=== PATIENT | male | born 1965 | race Caucasian/White ===

== ENCOUNTER 2016-07-15 11:08 | Emergency (ER) | payer BC ==
[~2016-07-15] VITALS: Ht 154.9 cm; Wt 71.0 kg
[2016-07-15 11:15] VITALS: BP 117/58; PULSE 68; RESP 18; TEMP 97.8; O2SAT 100
[2016-07-15] MEDS ORDERED: SODIUM CHLOR 0.9% 1000 ML INJ 1,000 ML IV ONE (11:24)
[2016-07-15 11:29] VITALS: RESP 17; O2SAT 100
[2016-07-15 11:30] VITALS: BP_SYST 101; BP_SYST 109; BP_DIAS 57; BP_DIAS 58; BP_DIAS 74; RESP 16; RESP 17
[2016-07-15] MEDS ORDERED: ONDANSETRON HCL 4 MG/2 ML VIAL IVP ONE (11:30)
--- NOTE | 2016-07-15 11:33 | PD ---
HPI Chief Complaint: Syncope/Near-Syncope Time Seen by Provider: 11:29 Travel History International Travel<30 days: No Contact w/Intl Traveler<30days: No Traveled to known affect area: No History of Present Illness HPI Patient comes emergency Department after having a witnessed syncopal episode at home. Patient reports he sat have these intermittently about 10 years ago. Patient states he was evaluated for these previously was unable to find a cause. Patient states today he was trying to move a couch when he felt a sharp pain in his low back is sharp stabbing like in nature without radiation. Patient states he went to the bedroom where he had the syncopal episode. Patient's daughter is at bedside states that she does not believe that he hit his head and that her mother witnessed the fall. Patient denies any chest pain pre-or post syncopal event. Denies any headache, dizziness, vomiting, abdominal pain, loss of bowel or bladder, or numbness or tingling anywhere. Patient stated he did feel lightheaded prior to the episode. Patient is concerned over his neck secondary to having a previous melanoma. Denies any neck pain. PFSH Past Medical History Cancer: Yes (melanoma) Diminished Hearing: No Medical other: Yes (BACK PAIN HX) Tetanus Vaccination: > 5 Years Influenza Vaccination: Yes Social History Alcohol Use: Yes (RARE) Tobacco Use: No Substance Use: No Allergies-Medications (Allergen,Severity, Reaction): Coded Allergies: No Known Allergies (Unverified , 07/15/16) Reported Meds & Prescriptions Reported Meds & Active Scripts Active Flexeril (Cyclobenzaprine HCl) 10 Mg Tab 10 Mg PO Q8HR PRN Naprosyn (Naproxen) 500 Mg Tab 500 Mg PO Q12HR PRN Review of Systems Except as stated in HPI: all other systems reviewed are Neg Physical Exam Narrative GENERAL: Well-developed, well nourished, in no acute distress, and non-ill appearing. SKIN: Focused skin assessment warm and dry. HEAD: Atraumatic. Normocephalic. EYES: Pupils equal and round. EOMI. No scleral icterus. No injection or drainage. ENT: No nasal bleeding or discharge. Mucous membranes pink and moist. NECK: Trachea midline. No JVD. Supple. No nuclear rigidity. CARDIOVASCULAR: Regular rate and rhythm. No murmur appreciated. RESPIRATORY: No accessory muscle use. No respiratory distress. Clear to auscultation. Breath sounds equal bilaterally. GASTROINTESTINAL: Abdomen soft, non-tender, nondistended. Hepatic and splenic margins not palpable. Normal bowel sounds 4. No pulsatile mass. MUSCULOSKELETAL: No obvious deformities. No clubbing. No cyanosis. No edema. Full range of motion. No tenderness or crepitus over midline of the lumbar spine. Patient reports tenderness to palpation paravertebral spinal muscles more on left right lumbar spine. Shoulder:FROM equal BL with passive flexion, extension, Abduction, Adduction, internal/external rotation, and pronation/ supination. Sensation equal BL deltoid muscles. Pulses equal BL distal to injury. Capillary refill less than 2 seconds distal to injury and equal BL. FROM distal to injury and equal BL. Strength distal to injury equal BL. NV intact distal to injury equal BL. Flexion and extension of thumb equal BL. Equal strength and movement with abduction/adductions of BL fingers. Sales Operations strength equal BL. Strength 5 out of 5 and equal bilaterally with plantar and dorsiflexion. Sensation intact over first web spacing bilateral lower extremities. NEUROLOGICAL: Awake and alert. No obvious cranial nerve deficits. Motor grossly within normal limits. Normal speech. PSYCHIATRIC: Appropriate mood and affect; insight and judgment normal. Data Data Last Documented VS Vital Signs Date Time Temp Pulse Resp B/P Pulse Ox O2 Delivery O2 Flow Rate FiO2 07/15/16 14:33 97.8 68 16 110/67 99 07/15/16 13:00 Room Air Orders Electrocardiogram (07/15/16 11:24) Basic Metabolic Panel (Bmp) (07/15/16 11:24) Complete Blood Count With Diff (07/15/16:) Magnesium (Mg) (07/15/16 11:24) Ckmb (Isoenzyme) Profile (07/15/16 11:24) Troponin I (07/15/16 11:24) Act Partial Throm Time (Ptt) (07/15/16:24) Prothrombin Time / Inr (Pt) (07/15/16 11:24) Ct Brain W/O Iv Contrast(Rout) (07/15/16 11:24) Ct Cerv Spine W/O Contrast (07/15/16 11:24) Ecg Monitoring (07/15/16:24) Iv Access Insert/Monitor (07/15/16:24) Oximetry (5/13/17 11:24) Ondansetron Inj (Zofran Inj) (07/15/16 11:30) Sodium Chloride 0.9% Flush (Ns Flush) (07/15/16 11:30) Sodium Chlor 0.9% 1000 Ml Inj (Ns 1000 M (07/15/16 11:24) Orthostatic Vital Signs (07/15/16 11:24) Spine, Lumbar - Ltd (Ap & Lat) (07/15/16 ) D-Dimer (07/15/16 11:24) CKMB (07/15/16 11:00) CKMB% (07/15/16 11:00) Ketorolac Inj (Toradol Inj) (07/15/16 14:15) Cyclobenzaprine (Flexeril) (07/15/16 14:15) Labs Laboratory Tests Test 07/15/16 11:00 White Blood Count 5.7 TH/MM3 Red Blood Count 4.70 MIL/MM3 Hemoglobin 13.2 GM/DL Hematocrit 38.7 % Mean Corpuscular Volume 82.4 FL Mean Corpuscular Hemoglobin 28.0 PG Mean Corpuscular Hemoglobin 33.9 % Concent Red Cell Distribution Width 13.6 % Platelet Count 175 TH/MM3 Mean Platelet Volume 8.3 FL Neutrophils (%) (Auto) 57.0 % Lymphocytes (%) (Auto) 33.5 % Monocytes (%) (Auto) 6.4 % Eosinophils (%) (Auto) 2.6 % Basophils (%) (Auto) 0.5 % Neutrophils # (Auto) 3.2 TH/MM3 Lymphocytes # (Auto) 1.9 TH/MM3 Monocytes # (Auto) 0.4 TH/MM3 Eosinophils # (Auto) 0.1 TH/MM3 Basophils # (Auto) 0.0 TH/MM3 CBC Comment DIFF FINAL Differential Comment Prothrombin Time 11.8 SEC Prothromb Time International 1.1 RATIO Ratio Activated Partial 22.9 SEC Thromboplast Time D-Dimer Quantitative (PE/DVT) LESS THAN 0.19 MG/L FEU Sodium Level 142 MEQ/L Potassium Level 4.4 MEQ/L Chloride Level 109 MEQ/L Carbon Dioxide Level 25.5 MEQ/L Anion Gap 8 MEQ/L Blood Urea Nitrogen 21 MG/DL Creatinine 0.90 MG/DL Estimat Glomerular Filtration 89 ML/MIN Rate Random Glucose 116 MG/DL Calcium Level 8.1 MG/DL Magnesium Level 2.0 MG/DL Total Creatine Kinase 103 U/L Creatine Kinase MB 0.8 NG/ML Troponin I LESS THAN 0.02 NG/ML MDM Medical Decision Making Medical Screen Exam Complete: Yes Emergency Medical Condition: Yes Interpretation(s) EKG reviewed by Dr. Uriarte shows sinus rhythm with a ventricular rate of 64. No STEMI. Chest x-ray read by the radiologist shows: No fracture. CT the head read by the radiologist shows: Normal examination. CT cervical spine read by the radiologist shows: 1. Small generalized posterior disc osteophyte complexes at C5-6 and C6-7 levels. 2. No fracture or subluxation. Differential Diagnosis Syncope, near syncope, acute coronary syndrome, vasovagal reaction, fracture, strain, acute cranial hemorrhage, other Narrative Course Patient presented with a syncopal event. It appears clinically due to vasovagal. The patient has no significant risk factors and no significant co- morbidities. The patient denied any symptoms of chest pain, SOB/difficulty breathing, palpitations or skipped heartbeats. The patient denied and headache. There was no evidence clinically to suspect acute pulmonary embolism, cardiac dysrhythmia, or intracranial event or bleed. EKG and laboratory evaluation revealed no significant findings. The patient was given IV hydration and noted significant improvement. The patient may be safely discharged and follow up as an outpatient. The patient was instructed to return if events occur more frequently or associated with chest pain, SOB/difficulty breathing, palpitations or skipped heartbeats or headache or blood in stool or tarry in stools. The patient presented complaining of back pain. There was no history of recent fall or blunt trauma. However, history elicited activity likely causing muscular strain and injury. Radiological exam was negative as well. There was no evidence to support genitourinary etiology. There is also no evidence to suggest vascular pathology such as AAA dissection. No fevers or other evidence to suspect infectious processes, abscess, osteomyelitis etc. The patients neurological exam is normal with normal motor and sensory. There is no saddle paresthesias reported and no bowel or bladder incontinence or retention. I suspect the pain is mechanical in nature. Clinical suspicion, plan of care and management was discussed with the patient. The patient was instructed to follow up with their health care provider. The patient was also instructed to return if the pain worsened, changed, or developed weakness or bowel or bladder trouble. The patient agreed with plan. Patient in no obvious distress upon re-evaluation. All pertinent laboratory/ Radiology result(s) discussed with patient/family. Discussed patient with Dr. Villafana prior to discharge, who saw and evaluated the patient and is in agreement with plan of care and disposition. Any questions/concerns in reference to patient diagnosis/condition discussed and clarified prior to patient's discharge. Reinforced sheer importance of close follow up with patient's primary physician or primary care clinic. Instructed patient to return to ED immediately, if symptoms return/worsen. Pt showed understanding of above instructions. Further instructions and recommendations were detailed in discharge paperwork. Pt ambulated without difficulty out of ED at discharge. Diagnosis Primary Impression: Vasovagal syncope Additional Impression: Low back strain Qualified Code: S39.012A - Low back strain, initial encounter Patient Instructions: General Instructions, Low Back Strain (ED), Syncope (ED) Additional Instructions: Follow-up with your primary care physician in 2-3 days for reevaluation. Take all medication as prescribed. Return to the emergency department if symptoms get worse. Med/Other Pt SpecificInfo: Prescription(s) given Scripts Cyclobenzaprine (Flexeril)10 Mg Tab10 Mg PO Q8HR PRN (MUSCLE PAIN) #15 TAB Ref 0 Prov:Kristina Macias DO 07/15/16 Naproxen (Naprosyn)500 Mg Hft083 Mg PO Q12HR PRN (PAIN SCALE 1 TO 10) #14 TAB Ref 0 Prov:Kristina Macias DO 07/15/16 Disposition: 01 DISCHARGE HOME Condition: Stable Rodolfo Cadena July 15, 2016 11:32
--- NOTE | 2016-07-15 11:55 | RADRPT ---
EXAM DATE/TIME: 07/15/2016 11:38 [facility] COMPARISON: No previous studies available for comparison. INDICATIONS : Pain from lifting. MEDICAL HISTORY : None. SURGICAL HISTORY : None. ENCOUNTER: Initial ACUITY: 1 day PAIN SCORE: 8/10 LOCATION: Lumbar spine. FINDINGS: Two view examination was performed. There are five non-rib bearing vertebral bodies. The vertebral bodies are in normal alignment without evidence of subluxation or scoliosis. The disc spaces are barrie ntained. The pedicles are intact. Bony mineralization is normal. No fracture is identified. CONCLUSION: No fracture. Miguel Huynh MD on July 15, 2016 at 11:52 Board Certified Radiologist. This report was verified electronically.
[2016-07-15 12:02] LABS: AUTOMATED NEUTROPHIL # 3.2 TH/MM3 (1.8-7.7); BASOPHIL % 0.5 % (0.0-2.0); EOSINOPHIL # 0.1 TH/MM3 (0-0.4); EOSINOPHIL % 2.6 % (0.0-4.0); HEMATOCRIT 38.7 % (39.0-51.0); HEMO FLAGS DIFF FINAL; LYMPH % 33.5 % (9.0-44.0); LYMPHOCYTE # 1.9 TH/MM3 (1.0-4.8); MEAN CELL VOLUME 82.4 FL (80.0-100.0); MEAN CORPUSCULAR HGB CONC 33.9 % (32.0-36.0); MONO % 6.4 % (0.0-8.0); PLATELET COUNT 175 TH/MM3 (150-450); RED CELL DISTRIBUTION WIDTH 13.6 % (11.6-17.2); WHITE BLOOD COUNT 5.7 TH/MM3 (4.0-11.0)
[2016-07-15 12:15] LABS: APTT (PATIENT) 22.9 SEC (24.3-30.1); INTERNATIONAL NORMALIZED RATIO 1.1 RATIO; PROTHROMBIN TIME - PATIENT 11.8 SEC (9.8-11.6)
[2016-07-15 12:21] LABS: ANION GAP 8 MEQ/L (5-15); BICARBONATE 25.5 MEQ/L (21.0-32.0); BLOOD UREA NITROGEN 21 MG/DL (7-18); CHLORIDE 109 MEQ/L (98-107); GLOMERULAR FILTRATION RATE 89 ML/MIN (>89); POTASSIUM 4.4 MEQ/L (3.5-5.1); SODIUM (NA) 142 MEQ/L (136-145)
[2016-07-15 12:24] LABS: CREATINE KINASE 103 U/L (39-308)
[2016-07-15] MEDS: SODIUM CHLORIDE 0.9% FLUSH 10 ML FLUSH IVF PRN ×2 (12:33→14:17)
[2016-07-15 12:37] LABS: CKMB 0.8 NG/ML (0.5-3.6)
[2016-07-15 13:00] VITALS: BP 100/58; PULSE 76; RESP 16; O2SAT 100
--- NOTE | 2016-07-15 14:02 | RADRPT ---
EXAM DATE/TIME: 07/15/2016 13:09 [facility] COMPARISON: No previous studies available for comparison. INDICATIONS : Syncopal episode today, fall onto forehead. RADIATION DOSE: 56.35 CTDIvol (mGy) MEDICAL HISTORY : melanoma SURGICAL HISTORY : None. ENCOUNTER: Initial ACUITY: 1 day PAIN SCALE: 7/10 LOCATION: Bilateral forehead TECHNIQUE: Multiple contiguous axial images were obtained of the head. Using automated exposure control and adj ustment of the mA and/or kV according to patient size, radiation dose was kept as low as reasonably a chievable to obtain optimal diagnostic quality images. FINDINGS: CEREBRUM: The ventricles are normal for age. No evidence of midline shift, mass lesion, hemorrhage or acute in farction. No extra-axial fluid collections are seen. POSTERIOR FOSSA: The cerebellum and brainstem are intact. The 4th ventricle is midline. The cerebellopontine angle i s unremarkable. EXTRACRANIAL: The visualized portion of the orbits is intact. SKULL: The calvaria is intact. No evidence of skull fracture. CONCLUSION: Normal examination. Miguel Huynh MD on July 15, 2016 at 13:59 Board Certified Radiologist. This report was verified electronically.
--- NOTE | 2016-07-15 14:08 | RADRPT ---
EXAM DATE/TIME: 07/15/2016 13:12 [facility] COMPARISON: No previous studies available for comparison. INDICATIONS : Syncopal episode today, contusion to forehead. RADIATION DOSE: 32.36 CTDIvol (mGy) MEDICAL HISTORY : melanoma SURGICAL HISTORY : None. ENCOUNTER: Initial ACUITY: 1 day PAIN SCALE: 5/10 LOCATION: Bilateral neck TECHNIQUE: Volumetric scanning of the cervical spine was performed. Multiplanar reconstructions in the sagittal, coronal and oblique axial planes were performed. Using automated exposure control and adjustment o f the mA and/or kV according to patient size, radiation dose was kept as low as reasonably achievable to obtain optimal diagnostic quality images. FINDINGS: VERTEBRAE: Normal vertebral body height. No fracture. Facets are well aligned. ALIGNMENT: No evidence of subluxation. C2-C3: The bony spinal canal is normal in size. No evidence of disc bulge or herniation. The neural forami na are bilaterally patent. C3-C4: The bony spinal canal is normal in size. No evidence of disc bulge or herniation. The neural forami na are bilaterally patent. C4-C5: The bony spinal canal is normal in size. No evidence of disc bulge or herniation. The neural forami na are bilaterally patent. C5-C6: Small generalized posterior disc osteophyte complex without canal stenosis. The neural foramina are bilaterally patent. C6-C7: Small generalized posterior disc osteophyte complex without canal stenosis. The neural foramina are bilaterally patent. C7-T1: The bony spinal canal is normal in size. No evidence of disc bulge or herniation. The neural forami na are bilaterally patent. CONCLUSION: 1. Small generalized posterior disc osteophyte complexes at C5-6 and C6-7 levels. 2. No fracture or subluxation. Miguel Huynh MD on July 15, 2016 at 14:04 Board Certified Radiologist. This report was verified electronically.
[2016-07-15] MEDS ORDERED: CYCLOBENZAPRINE HCL 10 MG TAB PO ONE (14:15)
[2016-07-15] MEDS ORDERED: KETOROLAC TROMETHAMINE 30 MG/ML (IVP) VIAL IV PUSH ONE (14:15)
[2016-07-15] MEDS ORDERED: NAPR500 PO (14:31)
[2016-07-15] MEDS ORDERED: CYCL1TAB29 PO (14:31)
[2016-07-15 14:33] VITALS: BP 110/67; TEMP 97.8
--- NOTE | 2016-07-16 14:56 | EKG ---
Date Performed: 07/15/2016 Time Performed: 11:16:37 PTAGE: 50 years EKG: Sinus rhythm POSSIBLE RIGHT VENTRICULAR CONDUCTION DELAY BORDERLINE ECG NO PREVIOUS TRACING DOCTOR: Regine Gan Interpretating Date/Time 07/16/2016 14:55:39
== END 2016-07-15 14:35 | disposition home or self-care (01) ==
LOC: NEPE 11:08
DX: R55 Syncope and collapse (principal); S39.012A Strain of muscle, fascia and tendon of lower back, initial encounter; R42 Dizziness and giddiness; R94.31 Abnormal electrocardiogram [ECG] [EKG]; X50.0XXA Overexertion from strenuous movement or load, initial encounter; Y92.009 Unspecified place in unspecified non-institutional (private) residence as the place of occurrence of the external cause
CPT/HCPCS: 70450; 72100; 72125; 80048; 82550; 82552; 83735; 84484; 85025; 85379; 85610; 85730; 93005; 96361; 96374; 96375; 99285; J1885; J2405; J7030